=== PATIENT | female | born 1990 | race Caucasian/White ===

== ENCOUNTER 2020-04-21 10:38 | Inpatient (IN) | payer MEDICAID ==
[~2020-04-21] VITALS: Ht 157.5 cm; Wt 99.3 kg
[2020-04-21] MEDS ORDERED: METHYLERGONOVINE MALEATE 0.2 MG/ML IM PRN ×2 (13:30→22:15)
[2020-04-21] MEDS ORDERED: LIDOCAINE HCL 1% 20ML VIAL (Pyxis) INJ INFIL SCH (13:30)
[2020-04-21] MEDS ORDERED: NALOXONE HCL 0.4 MG/ML 1ML VIAL IM PRN (13:30)
[2020-04-21] MEDS ORDERED: DEXT 5%/LR + PITOCIN 20UNITS/L 1,000 ML IV SCH ×2 (13:30→22:15)
[2020-04-21] MEDS ORDERED: BUTORPHANOL TARTRATE 2 MG/ML VIAL IV PRN (13:30)
[2020-04-21] MEDS: LACTATED RINGERS 1,000 ML IV SCH ×2 (14:14→19:55)
[2020-04-21 15:18] LABS: CLARITY URINE CLEAR (CLEAR); COLOR URINE YELLOW (YELLOW); KETONES URINE NEGATIVE (NEGATIVE); LEUKOCYTE ESTERASE URINE NEGATIVE (NEGATIVE); NITRITE URINE NEGATIVE (NEGATIVE); OCCULT BLOOD URINE NEGATIVE (NEGATIVE); PH URINE 5.5 (4.5-8.0); PROTEIN URINE NEGATIVE (NEGATIVE); SPECIFIC GRAVITY URINE 1.007 (1.005-1.030); UROBILINOGEN URINE 0.2 E.U./dL (0.2-1.0)
[2020-04-21 15:22] LABS: BASOPHILS % 0.3 % (0.0-2.0); EOSINOPHILS % 0.3 % (0.0-5.0); HEMATOCRIT. 41.9 % (36.0-48.0); HEMOGLOBIN. 14.3 g/dL (12.0-16.0); LYMPHOCYTES % 20.6 % (20.0-50.0); MEAN CORPUSCULAR HEMOGLOBIN 32.4 pg (28.0-32.0); MEAN CORPUSCULAR VOLUME 95.2 fL (81.0-99.0); MEAN PLATELET VOLUME 9.2 fl (7.4-10.4); MONOCYTES % 5.1 % (2.0-8.0); NEUTROPHILS % 73.7 % (40.0-76.0); PLATELET 155 x1000/uL (130-400); RED BLOOD CELL COUNT 4.41 mill/uL (4.2-5.4); RED CELL DISTRIBUTION WIDTH 14.6 % (11.6-14.6)
[2020-04-21 15:26] LABS: INR 0.9; PARTIAL THROMBOPLASTIN TIME 28.3 sec (23.4-31.0); PROTHROMBIN TIME 9.9 sec (9.6-11.0)
[2020-04-21] MEDS ORDERED: ROPIVACAINE HCL/PF EPIDURAL 200 ML EPI SCH (15:30)
[2020-04-21 15:34] LABS: *BARBITURATES SCREEN URINE NEGATIVE (NEGATIVE); *BENZODIAZEPINES SCREEN URINE NEGATIVE (NEGATIVE); *COCAINE SCREEN URINE NEGATIVE (NEGATIVE); METHADONE URINE SCREEN NEGATIVE (NEGATIVE)
[2020-04-21 15:35] LABS: CANNABINOID URINE SCREEN NEGATIVE (NEGATIVE); OPIATES URINE SCREEN NEGATIVE (NEGATIVE); PHENCYCLIDINE URINE SCREEN NEGATIVE (NEGATIVE)
[2020-04-21 15:38] LABS: *AMPHETAMINES SCREEN URINE NEGATIVE (NEGATIVE)
[2020-04-21 15:56] LABS: HEPATITIS B SURFACE ANTIGEN NEGATIVE
[2020-04-21] MEDS: OXYTOCIN 20 UNITS in LACTATED RINGERS 1,000 ML IV SCH ×2 (17:55→22:51)
[2020-04-21] MEDS ORDERED: ACETAMINOPHEN WITH CODEINE 300/30MG TABLET PO PRN (22:15)
[2020-04-21] MEDS ORDERED: BENZOCAINE/LANOLIN/ALOE VERA SPRAY TOP PRN (22:15)
[2020-04-21] MEDS ORDERED: HEMORRHOIDAL SUPP PR PRN (22:15)
[2020-04-21] MEDS ORDERED: DIPHENHYDRAMINE 25MG CAPSULE PO PRN (22:15)
[2020-04-21] MEDS ORDERED: GLYCERIN/WITCH HAZEL LEAF MEDICATED PAD TOP PRN (22:15)
[2020-04-21] MEDS ORDERED: IBUPROFEN 400MG TABLET PO PRN (22:15)
[2020-04-21] MEDS ORDERED: LANOLIN OINT 7GM TUBE TOP PRN (22:15)
[2020-04-21] MEDS ORDERED: BISACODYL 10MG SUPP PR PRN (22:15)
[2020-04-21 23:40] VITALS: BP 113/59
[2020-04-21] MEDS: IBUPROFEN 800MG TABLET PO PRN (23:57)
[2020-04-22] VITALS (7 sets, daily range): BP systolic 102–120; BP diastolic 50–60
[2020-04-22] MEDS ORDERED: METHYLERGONOVINE MALEATE 0.2 MG/ML IM ONE (01:30)
[2020-04-22] MEDS ORDERED: MISOPROSTOL 200MCG TABLET RC ONE (01:30)
[2020-04-22 01:45] LABS: CHLORIDE 108 mEq/L (98-107)
[2020-04-22 01:47] LABS: BASOPHILS % 0.1 % (0.0-2.0); EOSINOPHILS % 0.4 % (0.0-5.0); HEMATOCRIT. 35.8 % (36.0-48.0); HEMOGLOBIN. 12.3 g/dL (12.0-16.0); LYMPHOCYTES % 13.1 % (20.0-50.0); MEAN CORPUSCULAR HEMOGLOBIN 32.3 pg (28.0-32.0); MEAN CORPUSCULAR VOLUME 94.1 fL (81.0-99.0); MONOCYTES % 5.4 % (2.0-8.0); PLATELET 146 x1000/uL (130-400); RED CELL DISTRIBUTION WIDTH 14.2 % (11.6-14.6)
[2020-04-22] MEDS ORDERED: DEXT 5%/LR + PITOCIN 20UNITS/L 0 ML IV ONE (03:13)
[2020-04-22 03:28] LABS: PARTIAL THROMBOPLASTIN TIME 27.9 sec (23.4-31.0); PROTHROMBIN TIME 10.2 sec (9.6-11.0)
[2020-04-22] MEDS ORDERED: OXYTOCIN 20 UNITS in LACTATED RINGERS 1,000 ML IV SCH (04:00)
[2020-04-22] MEDS: CEFAZOLIN 2,000 MG in DEXT 5% WATER 100 ML IV SCH ×3 (04:09→20:10)
[2020-04-22] MEDS ORDERED: KETOROLAC 15MG/ML VIAL IM SCH (04:15)
[2020-04-22] MEDS ORDERED: KETOROLAC 15MG/ML VIAL IV ONE (04:15)
[2020-04-22] MEDS: OXYTOCIN 20 UNITS in LACTATED RINGERS 1,000 ML IV SCH (06:34)
[2020-04-22] MEDS ORDERED: MISOPROSTOL 200MCG TABLET ONE (07:00)
[2020-04-22] MEDS ORDERED: METHYLERGONOVINE MALEATE 0.2 MG/ML ONE (07:00)
[2020-04-22] MEDS ORDERED: OXYTOCIN 10 UNITS/ML 1ML ONE (07:00)
[2020-04-22] MEDS: IBUPROFEN 800MG TABLET PO PRN ×2 (07:47→15:32)
[2020-04-22] MEDS: FERROUS SULFATE 325MG TABLET PO SCH ×2 (07:47→17:30)
[2020-04-22] MEDS: METHYLERGONOVINE MALEATE 0.2MG TABLET PO SCH ×3 (07:47→23:45)
[2020-04-22] MEDS: PRENATAL VIT/FE FUMARATE/FA TABLET PO SCH (07:47)
[2020-04-22] MEDS ORDERED: SIMETHICONE 80MG TABLET CHEW PO SCH (08:00)
[2020-04-22 08:15] LABS: BASOPHILS % 0.2 % (0.0-2.0); EOSINOPHILS % 0.1 % (0.0-5.0); HEMATOCRIT. 33.3 % (36.0-48.0); HEMOGLOBIN. 11.4 g/dL (12.0-16.0); LYMPHOCYTES % 20.9 % (20.0-50.0); MEAN CORPUSCULAR HEMOGLOBIN 32.5 pg (28.0-32.0); MEAN CORPUSCULAR VOLUME 95.1 fL (81.0-99.0); MEAN PLATELET VOLUME 8.8 fl (7.4-10.4); MONOCYTES % 5.3 % (2.0-8.0); NEUTROPHILS % 73.5 % (40.0-76.0); PLATELET 138 x1000/uL (130-400); RED BLOOD CELL COUNT 3.51 mill/uL (4.2-5.4); RED CELL DISTRIBUTION WIDTH 14.3 % (11.6-14.6)
[2020-04-22] MEDS ORDERED: TETANUS, DIPHTHERIA, PERTUSSIS VAC/PF 0.5ML (>7YR OLD) IM ONE (09:00)
[2020-04-22] MEDS ORDERED: DOCUSATE SODIUM 100MG CAPSULE PO SCH (21:00)
[2020-04-22] MEDS ORDERED: INFLUENZA VACCINE 05/PF 0.5 ML VIAL IM ONE (21:30)
[2020-04-23] MEDS: CEFAZOLIN 2,000 MG in DEXT 5% WATER 100 ML IV SCH (04:17)
[2020-04-23 04:30] VITALS: BP 97/65
[2020-04-23 07:30] VITALS: BP 102/52
[2020-04-23] MEDS: PRENATAL VIT/FE FUMARATE/FA TABLET PO SCH (07:41)
[2020-04-23] MEDS: FERROUS SULFATE 325MG TABLET PO SCH (07:41)
[2020-04-23] MEDS: METHYLERGONOVINE MALEATE 0.2MG TABLET PO SCH (07:41)
[2020-04-23] MEDS: IBUPROFEN 800MG TABLET PO PRN (07:42)
== END 2020-04-23 12:40 | disposition home or self-care (01) | DRG 542 ==
LOC: 8 EST LDRP 10:38 → OBSVTOIN 10:38 → INTOOBSV 10:38 → 8EST 22:59
PROVIDERS: ADMIT Obstetrics & Gynecology; ATTEND Obstetrics & Gynecology
PROC: 10E0XZZ Delivery of Products of Conception, External Approach (ICD-10-PCS; principal; 2020-04-23)
PROC: 3E0R3BZ Introduction of Anesthetic Agent into Spinal Canal, Percutaneous Approach (ICD-10-PCS; 2020-04-23)
PROC: 00HU33Z Insertion of Infusion Device into Spinal Canal, Percutaneous Approach (ICD-10-PCS; 2020-04-23)
PROC: 0W3R7ZZ Control Bleeding in Genitourinary Tract, Via Natural or Artificial Opening (ICD-10-PCS; 2020-04-23)
DX: O24.420 Gestational diabetes mellitus in childbirth, diet controlled (principal); O72.1 Other immediate postpartum hemorrhage; Z88.5 Allergy status to narcotic agent; Z3A.39 39 weeks gestation of pregnancy; Z79.899 Other long term (current) drug therapy; Z37.0 Single live birth
CPT/HCPCS: 36415; 76700; 76830; 76856; 80053; 80305; 81003; 82962; 85025; 85384; 86592; 86703; 86762; 86850; 86900; 86920; 87340; 90686; 99281; G0378; J0690; J1885; J2210; J2590; J2795; J7060; J7120